=== PATIENT | male | born 1995 | race Caucasian/White ===

== ENCOUNTER 2020-06-22 19:04 | Emergency (ER) | payer SELFPAY ==
[2020-06-22] MEDS ORDERED: Ketorolac Tromethamine 30 MG/ML VIAL ONE (20:06)
--- NOTE | 2020-06-22 20:29 | RAD ---
RADIOGRAPH LEFT SHOULDER 3VIEWS: DATE: 06/22/2020 HISTORY: 25-year-old male with left shoulder pain status post trauma 3 days ago FINDINGS: There is no evidence of fracture or dislocation. There is no evidence of periostitis, permeative lesi on, osteolytic lesion, or osteoblastic lesion. The joint spaces are maintained without erosions or significant osteophytes. IMPRESSION: Normal
== END 2020-06-22 20:40 | disposition home or self-care (01) ==
LOC: ERS 19:04
DX: M25.512 Pain in left shoulder (principal); F32.9 Major depressive disorder, single episode, unspecified; R20.2 Paresthesia of skin
CPT/HCPCS: J1885

== ENCOUNTER 2022-01-23 13:27 | Emergency (ER) | payer SELFPAY ==
[2022-01-23] MEDS ORDERED: Boostrix 0.5 ML (Tdap) VIAL ONE (14:42)
== END 2022-01-23 15:00 | disposition home or self-care (01) ==
LOC: ERS 13:27
DX: S61.216A Laceration without foreign body of right little finger without damage to nail, initial encounter (principal); Z23 Encounter for immunization; W26.8XXA Contact with other sharp object(s), not elsewhere classified, initial encounter
CPT/HCPCS: 12001; 90471; 90715

== ENCOUNTER 2023-05-18 12:17 | Emergency (ER) | payer SELFPAY ==
[~2023-05-18 12:17] MED LIST: Iopamidol-370 76% 500 ML MDV (1 ML CHARGE) ONE
[2023-05-18] MEDS ORDERED: Ketorolac Tromethamine 30 MG/ML VIAL ONE ×2 (12:42→13:03)
[2023-05-18] MEDS ORDERED: Vancomycin 1 GM/200 ML (FROZEN) BAG ONE (13:22)
[2023-05-18 13:56] LABS: #Basophils 0.1 thou/uL (0.0-0.2); #Eosinphils 0.2 thou/uL (0.0-0.7); #Monocytes 0.5 thou/uL (0.11-0.59); #Neutrophils 6.1 thou/uL (1.40-6.50); %Basophils 0.6 % (0.0-1.0); %Eosinophils 2.6 % (0.0-10.0); %Lymphocytes 20.8 % (21.0-51.0); %Monocytes 5.7 % (0.0-10.0); %Neutrophils 69.8 % (42.0-75.0); Hematocrit 39.8 % (42.0-52.0); Mean Corpuscular HGB CONC 35.2 g/dL (32.0-36.0); Mean Corpuscular Hemoglobin 31.3 pg (27.0-31.0); Mean Corpuscular Volume 88.8 fl (78.0-98.0); Mean Platelet Volume 9.1 fL (7.4-10.4); Platelet Count 272 10x3/uL (130-400); RBC Distribution Width 12.4 % (11.5-14.5); Red Blood Cell (RBC) Count 4.48 mill/uL (4.70-6.10); White Blood Cell (WBC) Count 8.7 10x3/uL (4.8-10.8)
[2023-05-18 14:25] LABS: ALT (SGPT) 19 U/L (8-55); AST (SGOT) 19 U/L (5-34); Albumin 4.2 g/dL (3.5-5.0); Alkaline Phosphatase 68 U/L (40-110); Anion Gap 9 mmol/L (10-20); BUN (Urea Nitrogen) 11 mg/dL (8.9-20.6); Bilirubin, Total 0.6 mg/dL (0.2-1.2); Calc. Creatinine Clearance 0 mL/min (70-130); Calcium 9.5 mg/dL (7.8-10.44); Carbon Dioxide 24 mmol/L (22-29); Chloride 108 mmol/L (98-107); Estimated GFR 113; Globulin 2.7 g/dL (2.4-3.5); Glucose 84 mg/dL (70-105); Potassium 4.2 mmol/L (3.5-5.1); Protein, Total 6.9 g/dL (6.0-8.3); Sodium 137 mmol/L (136-145)
== END 2023-05-18 15:18 | disposition home or self-care (01) ==
LOC: ERS 12:17
DX: S52.121A Displaced fracture of head of right radius, initial encounter for closed fracture (principal); S39.012A Strain of muscle, fascia and tendon of lower back, initial encounter; M25.511 Pain in right shoulder; I10 Essential (primary) hypertension; W17.89XA Other fall from one level to another, initial encounter
CPT/HCPCS: 24650; 70450; 71260; 72125; 74177; 80053; 85025; 96361; 96374; J1885; J3370-JW; Q9967